=== PATIENT | male | born 1950 | race Caucasian/White ===

== ENCOUNTER 2022-03-30 06:23 | Day surgery (SDC) | payer MEDICARE, OTHER ==
[~2022-03-30] VITALS: Ht 183 cm; Wt 113.0 kg
[~2022-03-30 06:23] MED LIST: INDOCIN25 MG PO; LOPRESSOR25 MG PO; OMEGA XL PO; OS-CAL500 MG PO; PACERONE 200MG200 MG PO; PEPCID AC20 MG PO; PRADAXA150 MG PO; TOLTERODINE PO; TYLENOL ARTHRI650 MG PO
[2022-03-30 06:59] LABS: BILIRUBIN NEGATIVE (NEGATIVE); BLOOD NEGATIVE Ery/uL (NEGATIVE); CLARITY CLEAR (CLEAR); COLOR YELLOW (YELLOW); GLUCOSE (U) NORMAL (NORMAL); LEUKOCYTES NEGATIVE Leu/uL (NEGATIVE); NITRITE NEGATIVE (NEGATIVE); PROTEIN NEGATIVE (NEGATIVE); UROBILINOGEN 0.2 mg/dL (0.2-1.0)
[2022-03-31 07:07] LABS: BASOPHIL 0.4 % (0-2); EOSINOPHIL 1.4 % (0-7); HCT 39.3 % (42.0-52.0); HGB 12.4 g/dl (13.2-18.0); LYMPHOCYTE 5.2 % (15-48); MCH 30.5 pg (25.0-31.0); MCHC 31.6 g/dL (32.0-36.0); MCV 96.6 fL (78.0-100.0); MONOCYTE 16.8 % (0-12); MPV 10.3 fL (6.0-9.5); NEUTROPHIL 75.6 % (41-80); NRBC 0; PLT 164 K/uL (150-400); RBC 4.07 M/uL (4.70-6.00); RDW 13.1 % (11.5-14.0); WBC 7.9 K/uL (4.0-10.5)
[2022-03-31 07:12] LABS: BUN/CREAT RATIO (CALC) 14.2 RATIO; CREATININE 1.2 mg/dL (0.67-1.17); POTASSIUM 4.2 mmol/L (3.5-5.1)
[2022-03-31] MEDS ORDERED: FEOSOL325 MG PO (08:06)
--- NOTE | 2022-03-31 10:42 | NUR ---
PT REQUESTED Sachin DANIELS ([place]) FIRST APPT IS 04/02/22 @ 1:00 P.M. PT. DOES NOT REQUIRE XARELTO. PT HAS A RW. PT SIGNED A CHOICE FORM AND COPY GIVEN.
== END 2022-03-31 11:21 | disposition home or self-care (01) ==
LOC: FAS 06:23 → FMS 10:46 → FAS 03-31 11:21
PROVIDERS: Anesthesiology; Legal Medicine
DX: M17.11 Unilateral primary osteoarthritis, right knee (principal); G89.18 Other acute postprocedural pain; I10 Essential (primary) hypertension; Z88.8 Allergy status to other drugs, medicaments and biological substances; I48.91 Unspecified atrial fibrillation; G47.30 Sleep apnea, unspecified; Z99.89 Dependence on other enabling machines and devices; Z79.891 Long term (current) use of opiate analgesic; Z79.899 Other long term (current) drug therapy
CPT/HCPCS: 36415; 73560; 80048; 81003; 85025; 86850; 86900; 86901; 94010; 94762; 97110; 97116; 97161; 97166; C1713; C1776; J0171; J0690; J0697; J1170; J1885; J2250; J2270; J2405; J2704; J2795; J3010; J7120